=== PATIENT | female | born 1955 | race Native Hawaiian/Other Pacific Islander ===

== ENCOUNTER 2016-05-19 13:51 | Outpatient (CLI) | payer OTHER | END 2016-05-19 14:51 | disposition home or self-care (01) | LOC: MRI 13:51 | DX: M54.5 Low back pain (principal); M54.16 Radiculopathy, lumbar region ==

== ENCOUNTER 2016-07-28 10:21 | Outpatient (CLI) | payer OTHER | END 2016-07-28 19:12 | disposition home or self-care (01) | LOC: MAMMO 10:21 | DX: Z12.31 Encounter for screening mammogram for malignant neoplasm of breast (principal) | CPT/HCPCS: G0202-TC ==

== ENCOUNTER 2016-11-01 09:46 | Emergency (ER) | payer OTHER ==
[~2016-11-01] VITALS: Ht 160 cm; Wt 110.7 kg
[2016-11-01 09:58] VITALS: TEMP 98.4
[2016-11-01 11:21] LABS: PLATELET COUNT 168 K/uL (152-353)
[2016-11-01 11:28] LABS: POTASSIUM 4.4 mmol/L (3.6-5.2); SODIUM 139 mmol/L (136-145)
[2016-11-01 12:15] VITALS: BP 153/90
== END 2016-11-01 12:35 | disposition home or self-care (01) ==
LOC: ED 09:46
PROVIDERS: Specialist
DX: H81.10 Benign paroxysmal vertigo, unspecified ear (principal)
CPT/HCPCS: 36415; 80053; 80307; 81000; 83735; 84100; 85027; 96365; 99284; G0479; J3411; J3475; J3490

== ENCOUNTER 2017-04-18 10:49 | Outpatient (CLI) | payer OTHER | END 2017-04-18 11:50 | disposition home or self-care (01) | LOC: MAMMO 10:49 | DX: N64.4 Mastodynia (principal) ==

== ENCOUNTER 2017-09-08 10:55 | Outpatient (CLI) | payer OTHER | END 2017-09-08 19:36 | disposition home or self-care (01) | LOC: RAD 10:55 | DX: S99.812A Other specified injuries of left ankle, initial encounter (principal); M79.601 Pain in right arm ==

== ENCOUNTER 2018-02-11 14:47 | Emergency (ER) | payer OTHER ==
[~2018-02-11] VITALS: Ht 157.5 cm; Wt 109.8 kg
[2018-02-11 18:08] LABS: PLATELET COUNT 220 K/uL (152-353)
[2018-02-11 19:29] LABS: POTASSIUM 4.2 mmol/L (3.6-5.2)
[2018-02-11 22:43] VITALS: BP 165/83; TEMP 98.1
== END 2018-02-11 22:43 | disposition home or self-care (01) ==
LOC: ED 14:47
PROVIDERS: Family Medicine
DX: K29.60 Other gastritis without bleeding (principal)
CPT/HCPCS: 36415; 80053; 81000; 85027; 99283

== ENCOUNTER 2018-07-21 10:57 | Outpatient (CLI) | payer OTHER | END 2018-07-21 22:39 | disposition home or self-care (01) | LOC: MAMMO 10:57 | DX: Z12.31 Encounter for screening mammogram for malignant neoplasm of breast (principal) ==

== ENCOUNTER 2018-07-31 11:30 | Outpatient (CLI) | payer OTHER | END 2018-07-31 22:39 | disposition home or self-care (01) | LOC: RAD 11:30 | DX: M25.531 Pain in right wrist (principal); J44.9 Chronic obstructive pulmonary disease, unspecified ==

== ENCOUNTER 2018-11-20 01:16 | Inpatient (IN) | payer OTHER ==
[2018-11-20] VITALS (8 sets, daily range): BP systolic 130–204; BP diastolic 61–87; TEMP 97.4–98.1; Ht 160 cm; Wt 111.8 kg
[~2018-11-20] VITALS: Ht 160 cm; Wt 111.8 kg
[2018-11-20 02:07] LABS: PLATELET COUNT 169 K/uL (152-353)
[2018-11-20 02:41] LABS: POTASSIUM 4.6 mmol/L (3.6-5.2)
[2018-11-20] MEDS ORDERED: METFORMIN HCL500 M1 PO (08:46)
[2018-11-20] MEDS ORDERED: GLIM4TAB PO (08:47)
[2018-11-20] MEDS ORDERED: ROSU10TA PO (08:47)
[2018-11-20] MEDS ORDERED: LOPRESSOR100 MG PO (08:48)
[2018-11-20] MEDS ORDERED: AMLODIPINE BESYLATE PO (08:49)
[2018-11-20] MEDS ORDERED: FENOFIBRIC ACI135 MG PO (08:49)
[2018-11-20] MEDS ORDERED: OLMESARTAN MEDO1 TA1 PO (08:50)
[2018-11-21] VITALS (7 sets, daily range): BP systolic 134–156; BP diastolic 66–77; TEMP 97.6–98.4
[2018-11-22 04:00] VITALS: BP 135/70; TEMP 98.3
[2018-11-22 08:00] VITALS: BP 153/72; TEMP 98
[2018-11-22 12:00] VITALS: BP 182/74; TEMP 97.8
[2018-11-22 16:00] VITALS: BP 180/75; TEMP 97.6
[2018-11-22 17:00] VITALS: BP 166/77
[2018-11-22 20:00] VITALS: BP 169/85; TEMP 97.9
[2018-11-23 00:48] VITALS: BP 183/75; TEMP 98.3
[2018-11-23 04:00] VITALS: BP 148/65; TEMP 98.1
[2018-11-23 08:00] VITALS: BP 180/69; TEMP 97.6
[2018-11-23 12:00] VITALS: BP 157/70; TEMP 97.7
[2018-11-23 16:00] VITALS: BP 169/70; TEMP 97.7
[2018-11-23 19:41] VITALS: BP 127/76; TEMP 97.9
[2018-11-24 00:04] VITALS: BP 138/60; TEMP 98.2
[2018-11-24 04:24] VITALS: BP 143/67; TEMP 97.9
[2018-11-24 05:17] LABS: PLATELET COUNT 144 K/uL (152-353)
[2018-11-24 05:25] LABS: POTASSIUM 3.4 mmol/L (3.6-5.2)
[2018-11-24 08:00] VITALS: BP 145/61; TEMP 98.1
== END 2018-11-24 10:45 | disposition home or self-care (01) | DRG 440 ==
LOC: ED 01:16 → MED/SURG 03:30
PROVIDERS: Hospitalist; ADMIT Internal Medicine
DX: K85.80 Other acute pancreatitis without necrosis or infection (principal); J44.9 Chronic obstructive pulmonary disease, unspecified; I25.10 Atherosclerotic heart disease of native coronary artery without angina pectoris; E78.49 Other hyperlipidemia; G47.33 Obstructive sleep apnea (adult) (pediatric); E66.01 Morbid (severe) obesity due to excess calories; E11.9 Type 2 diabetes mellitus without complications; K21.9 Gastro-esophageal reflux disease without esophagitis; K76.0 Fatty (change of) liver, not elsewhere classified
CPT/HCPCS: 36415; 80048; 80053; 80320; 81000; 82150; 83690; 85027; 96360; 96375; 96376; 99284; J1170; J1644; J2405; J3490

== ENCOUNTER 2018-12-09 20:36 | Emergency (ER) | payer OTHER ==
[~2018-12-09] VITALS: Ht 160 cm; Wt 111.6 kg
[~2018-12-09 20:36] MED LIST: AMLODIPINE BESYLATE PO; FENOFIBRIC ACI135 MG PO; GLIM4TAB PO; LOPRESSOR100 MG PO; METFORMIN HCL500 M1 PO; OLMESARTAN MEDO1 TA1 PO; ROSU10TA PO
[2018-12-09 23:30] VITALS: BP 169/68; TEMP 98.9
== END 2018-12-09 23:35 | disposition home or self-care (01) ==
LOC: ED 20:36
DX: S80.11XA Contusion of right lower leg, initial encounter (principal); W17.2XXA Fall into hole, initial encounter; Y92.89 Other specified places as the place of occurrence of the external cause
CPT/HCPCS: 96372; 99282; 99283; J1885

== ENCOUNTER 2018-12-20 15:59 | Outpatient (CLI) | payer OTHER | END 2018-12-20 23:50 | disposition home or self-care (01) | LOC: US 15:59 | DX: M79.604 Pain in right leg (principal) ==

== ENCOUNTER 2019-02-15 05:20 | Inpatient (IN) | payer OTHER ==
[~2019-02-15] VITALS: Ht 157.5 cm; Wt 111.3 kg
[2019-02-15 05:30] VITALS: BP 173/73; TEMP 97.7
[2019-02-15 06:30] LABS: PLATELET COUNT 170 K/uL (152-353)
[2019-02-15 06:31] LABS: POTASSIUM 4.8 mmol/L (3.6-5.2); SODIUM 134 mmol/L (136-145)
[2019-02-15 07:40] VITALS: BP 151/69
[2019-02-15 09:08] VITALS: BP 126/63
[2019-02-15 12:52] VITALS: BP 170/83; TEMP 97.7; Ht 157.5 cm; Wt 111.3 kg
[2019-02-15 20:00] VITALS: BP 154/67; TEMP 98.4
[2019-02-15 23:59] VITALS: BP 161/82; TEMP 98.6
[2019-02-16 04:00] VITALS: BP 147/69; TEMP 98.2
[2019-02-16 05:12] LABS: PLATELET COUNT 140 K/uL (152-353)
[2019-02-16 05:30] LABS: POTASSIUM 4.4 mmol/L (3.6-5.2)
[2019-02-16 08:00] VITALS: BP 164/72; TEMP 98.8
[2019-02-17 16:13] VITALS: BP 127/59; TEMP 99.8
[2019-02-17 19:57] VITALS: BP 123/79; TEMP 99.5
[2019-02-17 23:57] VITALS: BP 130/58; TEMP 98.9
[2019-02-18 03:54] VITALS: BP 124/68; TEMP 99.2
[2019-02-18 05:12] LABS: PLATELET COUNT 116 K/uL (152-353)
[2019-02-18 05:39] LABS: POTASSIUM 3.4 mmol/L (3.6-5.2)
[2019-02-18 23:59] VITALS: BP 157/65; TEMP 98.6
[2019-02-19 03:54] VITALS: BP 157/70; TEMP 99.1
[2019-02-19 12:36] VITALS: BP 154/72; TEMP 99.4
[2019-02-19 16:10] VITALS: BP 174/75; TEMP 98.3
[2019-02-19 20:00] VITALS: BP 167/77; TEMP 99.4
[2019-02-20] VITALS: BP 146/61; TEMP 98.6
[2019-02-20 04:00] VITALS: BP 146/66; TEMP 98.6
[2019-02-20 08:19] VITALS: BP 162/74; TEMP 98.7
[2019-02-20 19:39] VITALS: BP 177/68; TEMP 98.3
[2019-02-21 00:26] VITALS: BP 168/72; TEMP 99.7
[2019-02-21 04:04] VITALS: BP 152/58; TEMP 98.1
[2019-02-21 08:00] VITALS: BP 147/65; TEMP 98.6
[2019-02-21 12:00] VITALS: BP 153/71; TEMP 98.4
[2019-02-21 15:52] VITALS: BP 171/75; TEMP 98.2
[2019-02-21 19:59] VITALS: BP 169/77; TEMP 99
[2019-02-22] VITALS (7 sets, daily range): BP systolic 123–178; BP diastolic 55–77; TEMP 98.2–99.8
[2019-02-23 04:00] VITALS: BP 174/70; TEMP 98.1
[2019-02-23 08:16] VITALS: BP 180/79; TEMP 98.3
== END 2019-02-23 15:35 | disposition home or self-care (01) | DRG 439 ==
LOC: ED 05:20 → MED/SURG 09:30
PROVIDERS: Emergency Medicine; Internal Medicine; ADMIT Emergency Medicine Emergency Medical Services
DX: K85.80 Other acute pancreatitis without necrosis or infection (principal); Z68.41 Body mass index [BMI] 40.0-44.9, adult; E11.9 Type 2 diabetes mellitus without complications; E78.49 Other hyperlipidemia; I10 Essential (primary) hypertension; K21.9 Gastro-esophageal reflux disease without esophagitis; I25.10 Atherosclerotic heart disease of native coronary artery without angina pectoris; G47.33 Obstructive sleep apnea (adult) (pediatric); E66.01 Morbid (severe) obesity due to excess calories
CPT/HCPCS: 36415; 80053; 82150; 82550; 83690; 84484; 85027; 90686; 93005; 96361; 96365; 96372; 96375; 99284; A9537; J1815; J1940; J2175; J2405; J3490

== ENCOUNTER 2019-05-24 07:39 | Day surgery (SDC) | payer OTHER ==
[2019-05-24 08:27] LABS: PLATELET COUNT 167 K/uL (152-353)
[2019-05-24 08:41] LABS: POTASSIUM 3.6 mmol/L (3.6-5.2)
== END 2019-05-24 10:46 | disposition home or self-care (01) ==
LOC: OR 07:39
PROVIDERS: Internal Medicine
PROC: 0DJD8ZZ Inspection of Lower Intestinal Tract, Via Natural or Artificial Opening Endoscopic (ICD-10-PCS; principal; 2019-05-24)
DX: K64.8 Other hemorrhoids (principal); J44.9 Chronic obstructive pulmonary disease, unspecified; Z72.0 Tobacco use; Z12.11 Encounter for screening for malignant neoplasm of colon
CPT/HCPCS: 80053; 85027; 94640; 94664; J2001; J2250; J2405; J2704; J2765

== ENCOUNTER 2019-08-08 20:04 | Inpatient (IN) | payer OTHER ==
[~2019-08-08] VITALS: Ht 160 cm; Wt 92.8 kg
[2019-08-08 20:20] VITALS: BP 200/112; TEMP 97.7
[2019-08-08 21:05] LABS: PLATELET COUNT 183 K/uL (152-353)
[2019-08-08 21:12] LABS: POTASSIUM 4.1 mmol/L (3.6-5.2); SODIUM 133 mmol/L (136-145)
[2019-08-09 00:54] VITALS: BP 151/78; TEMP 97.6; Ht 160 cm; Wt 92.8 kg
[2019-08-09] MEDS ORDERED: OZEMPIC2 MG/1.5 M SC (01:42)
[2019-08-09] MEDS ORDERED: ALLERGY NA50 MCG/ACT INH (01:44)
[2019-08-09] MEDS ORDERED: ALLERGY RELF10 M1 PO (01:45)
[2019-08-09] MEDS ORDERED: [UNRECOGNIZED DRUG - OTHER] PO (01:46)
[2019-08-09] MEDS ORDERED: PANTOPRAZOLE 40MG TA PO (01:48)
[2019-08-09 04:00] VITALS: BP 132/64; TEMP 97.9
[2019-08-09 08:00] VITALS: BP 136/70; TEMP 97.9
[2019-08-09 12:00] VITALS: BP 146/77; TEMP 98.3
[2019-08-09 16:00] VITALS: BP 129/74; TEMP 98.4
[2019-08-09 20:00] VITALS: BP 138/69; TEMP 98.6
[2019-08-10 00:18] VITALS: BP 144/67; TEMP 98.2
[2019-08-10 04:00] VITALS: BP 138/76; TEMP 97.8
[2019-08-10 04:59] LABS: PLATELET COUNT 149 K/uL (152-353)
[2019-08-10 07:52] VITALS: BP 138/68; TEMP 97.6
[2019-08-10 12:00] VITALS: BP 149/78; TEMP 97.6
[2019-08-10 16:00] VITALS: BP 161/84; TEMP 97.7
[2019-08-10 20:00] VITALS: BP 176/86; TEMP 98
[2019-08-11] VITALS: BP 163/81; TEMP 98.4
[2019-08-11 04:10] VITALS: BP 141/66; TEMP 97.8
== END 2019-08-11 14:00 | disposition home or self-care (01) | DRG 440 ==
LOC: ED 20:04 → MED/SURG 23:25
PROVIDERS: Internal Medicine; ADMIT Emergency Medicine
DX: K85.80 Other acute pancreatitis without necrosis or infection (principal); I10 Essential (primary) hypertension; K21.9 Gastro-esophageal reflux disease without esophagitis; E11.9 Type 2 diabetes mellitus without complications; I25.10 Atherosclerotic heart disease of native coronary artery without angina pectoris; J44.9 Chronic obstructive pulmonary disease, unspecified; G47.33 Obstructive sleep apnea (adult) (pediatric); E66.01 Morbid (severe) obesity due to excess calories; E78.49 Other hyperlipidemia
CPT/HCPCS: 36415; 80053; 80061; 82150; 82550; 82553; 83690; 84484; 85027; 93005; 96365; 96366; 96372; 96374; 99283; 99284; J2175; J2270; Q9963

== ENCOUNTER 2020-02-19 00:35 | Inpatient (IN) | payer OTHER ==
[2020-02-19] VITALS (7 sets, daily range): BP systolic 124–196; BP diastolic 60–79; TEMP 97.7–98.3; Ht 152.4 cm; Wt 100.4 kg
[~2020-02-19] VITALS: Ht 152.4 cm; Wt 100.4 kg
[~2020-02-19 00:35] MED LIST changes: +ALLERGY NA50 MCG/ACT INH; +ALLERGY RELF10 M1 PO; +OZEMPIC2 MG/1.5 M SC; +PANTOPRAZOLE 40MG TA PO; +[UNRECOGNIZED DRUG - OTHER] PO
[2020-02-19 03:02] LABS: PLATELET COUNT 189 K/uL (152-353)
[2020-02-19 03:13] LABS: POTASSIUM 4.8 mmol/L (3.6-5.2)
[2020-02-19 03:43] LABS: PARTIAL THROMBOPLASTIN TIME 23.3 SECONDS (24.5-33.6)
[2020-02-20 04:00] VITALS: BP 151/56; TEMP 98.4
[2020-02-20 08:00] VITALS: BP 181/80; TEMP 99.2
[2020-02-20 08:09] LABS: PLATELET COUNT 146 K/uL (152-353)
[2020-02-20 08:34] LABS: POTASSIUM 4.6 mmol/L (3.6-5.2)
[2020-02-20 20:15] VITALS: BP 173/81; TEMP 98.6
[2020-02-21] VITALS: BP 138/69; TEMP 98.6
[2020-02-21 04:00] VITALS: BP 167/82; TEMP 97.8
[2020-02-21 05:25] LABS: PLATELET COUNT 141 K/uL (152-353)
[2020-02-21 05:49] LABS: POTASSIUM 4.2 mmol/L (3.6-5.2)
[2020-02-21 12:00] VITALS: BP 135/60; TEMP 98.6
[2020-02-21 16:00] VITALS: BP 153/73; TEMP 99.5
[2020-02-21 21:07] VITALS: BP 174/82; TEMP 98.9
[2020-02-22 00:36] VITALS: BP 151/72; TEMP 98.3
[2020-02-22 04:00] VITALS: BP 154/75; TEMP 99.2
[2020-02-22 04:59] LABS: PLATELET COUNT 141 K/uL (152-353)
[2020-02-22 05:22] LABS: POTASSIUM 3.5 mmol/L (3.6-5.2)
[2020-02-22 08:35] VITALS: BP 168/75; TEMP 98.4
[2020-02-22 12:37] VITALS: BP 136/60; TEMP 98.7
== END 2020-02-22 15:20 | disposition home or self-care (01) | DRG 439 ==
LOC: ED 00:35 → MED/SURG 03:37
PROVIDERS: Hospitalist; ADMIT Internal Medicine Endocrinology, Diabetes & Metabolism
DX: K85.80 Other acute pancreatitis without necrosis or infection (principal); E87.1 Hypo-osmolality and hyponatremia; K86.1 Other chronic pancreatitis; I10 Essential (primary) hypertension; E13.9 Other specified diabetes mellitus without complications; E78.49 Other hyperlipidemia; G47.33 Obstructive sleep apnea (adult) (pediatric); E66.01 Morbid (severe) obesity due to excess calories; J44.9 Chronic obstructive pulmonary disease, unspecified; Z72.0 Tobacco use
CPT/HCPCS: 36415; 80053; 80320; 81000; 82150; 83690; 85027; 85610; 85730; 87088; 94640; 94664; 94760; 96365; 96374; 96375; 99284; J0360; J1170; J1815; J1940; J2270; J2405; J3490

== ENCOUNTER → 2020-03-22 | Emergency (ER) | payer OTHER ==
[~2020-03-22] VITALS: Ht 160 cm; Wt 98.0 kg
[2020-03-22 09:33] VITALS: TEMP 99.1
[2020-03-22 10:21] LABS: PLATELET COUNT 173 K/uL (152-353)
[2020-03-22 10:29] LABS: POTASSIUM 4.9 mmol/L (3.6-5.2)
[2020-03-22 10:56] VITALS: BP 156/84
== END ==
LOC: ED 09:22
PROVIDERS: Emergency Medicine Emergency Medical Services
DX: E11.65 Type 2 diabetes mellitus with hyperglycemia (principal); Z79.84 Long term (current) use of oral hypoglycemic drugs
CPT/HCPCS: 36415; 80053; 81000; 83690; 85027; 96360; 96372; 96375; 99284; J1815; J2405

== ENCOUNTER 2020-05-28 11:01 | Outpatient (CLI) | payer OTHER | END 2020-05-28 19:39 | disposition home or self-care (01) | LOC: MAMMO 11:01 | PROVIDERS: ATTEND Nurse Practitioner Family | DX: Z13.820 Encounter for screening for osteoporosis (principal); Z12.31 Encounter for screening mammogram for malignant neoplasm of breast; N95.8 Other specified menopausal and perimenopausal disorders ==

== ENCOUNTER 2020-10-12 10:29 | Emergency (ER) | payer OTHER ==
[~2020-10-12] VITALS: Ht 160 cm; Wt 91.2 kg
[2020-10-12 10:33] VITALS: BP 179/78; TEMP 98
== END 2020-10-12 11:25 | disposition home or self-care (01) ==
LOC: ED 10:29
DX: L30.8 Other specified dermatitis (principal)
CPT/HCPCS: 96372; 99283; J2930; J3410

== ENCOUNTER 2020-10-16 14:43 | Emergency (ER) | payer OTHER ==
[~2020-10-16] VITALS: Ht 160 cm; Wt 91.2 kg
[2020-10-16 14:58] VITALS: BP 202/82; TEMP 97.6
== END 2020-10-16 15:35 | disposition home or self-care (01) ==
LOC: ED 14:43
DX: T63.301A Toxic effect of unspecified spider venom, accidental (unintentional), initial encounter (principal); Y92.89 Other specified places as the place of occurrence of the external cause
CPT/HCPCS: 96372; 99283; J1020; J1885

== ENCOUNTER 2020-10-18 12:12 | Emergency (ER) | payer OTHER ==
[~2020-10-18] VITALS: Ht 160 cm; Wt 91.2 kg
[2020-10-18 12:18] VITALS: BP 187/80; TEMP 98.3
[2020-10-18 13:00] LABS: PLATELET COUNT 201 K/uL (152-353)
== END 2020-10-18 13:41 | disposition home or self-care (01) ==
LOC: ED 12:12
PROVIDERS: Emergency Medicine
DX: L02.414 Cutaneous abscess of left upper limb (principal); R23.8 Other skin changes; E11.65 Type 2 diabetes mellitus with hyperglycemia; Z79.84 Long term (current) use of oral hypoglycemic drugs
CPT/HCPCS: 80048; 85027; 87070; 87077; 87185; 87186; 87205; 96372; 99283; J3490

== ENCOUNTER 2020-10-21 15:36 | Inpatient (IN) | payer OTHER ==
[~2020-10-21] VITALS: Ht 160 cm; Wt 93.2 kg
--- NOTE | 2020-10-21 16:15 | NUR ---
ABSCESS NOTED TO RT CHEEK WITH REDDENED AREA, INTACT WITH NO DRAINAGE NOTED, OPEN ABSCESS NOTED TO RT FA MEASURING 2CM X 2CM DRY WITH NO DRAINAGE NOTED AT THIS TIME, TWO SMALL ABCESSES NOTED UNDER RT BREAST CDI
--- NOTE | 2020-10-21 16:15 | NUR ---
PT ADMITTED TO 1117 VIA WHEELCHAIR BY DIRECT ADMIT, NAD NOTED, SON ACCOMPANIED PT TO , PT AMBULATED FROM WHEELCHAIR TO BED WITHOUT ASSISTANCE, NONLABORED BREATHING, WEIGHT AND VITALS OBTAINED, ORIENTED PT TO AND CALL LIGHT, PT VERBLIZED UNDERSTANDING
[2020-10-21 17:16] VITALS: BP 147/74; TEMP 98.7; Ht 160 cm; Wt 93.2 kg
[2020-10-21 17:20] LABS: PLATELET COUNT 208 K/uL (152-353)
--- NOTE | 2020-10-21 17:30 | NUR ---
DR. SHEPARD IN PT RM TO PERFORM I&D TO ABCESS OF RT CHEEK, PT TOLERATED PROCEDURE WELL, SMALL AMOUNT OF PUS DRAINAGE NOTED AT THIS TIME, DR. SHEPARD STATES TO KEEP ABCESSES TO RT CHEEK AND RT FA OPEN TO AIR AND PERFROM WARM COMPRESSES, HE ALSO STATES TO EXPRESS PUS FROM ABCESS TO RT CHEEK AND RT FA IF ABLE, NO FURTHER ORDERS GIVEN AT THIS TIME
[2020-10-21 17:32] LABS: POTASSIUM 4.4 mmol/L (3.6-5.2)
[2020-10-21] MEDS ORDERED: METF100038 PO (19:39)
[2020-10-21] MEDS ORDERED: SIMV20TA2 PO (19:40)
[2020-10-21] MEDS ORDERED: AMLODIPINE BESYLATE PO (19:40)
[2020-10-21] MEDS ORDERED: GLIM2TAB PO (19:41)
[2020-10-21] MEDS ORDERED: GEMFIBROZIL PO (19:44)
[2020-10-21] MEDS ORDERED: ASPIRIN 81 LOW81 MG PO (19:44)
[2020-10-21] MEDS ORDERED: OLMESARTAN MEDO40 MG PO (19:45)
[2020-10-21] MEDS ORDERED: HYDROCHLOROT12.5 M1 PO (19:45)
[2020-10-21 20:00] VITALS: BP 150/67; TEMP 98
--- NOTE | 2020-10-21 20:40 | NUR ---
PT AWAKE,ALERT, AND ORIENTED SITTING UP ON SIDE OF BED WITH NO S/S OF PAIN OR DISTRESS NOTED. DENIES ANY PROBLEMS AT THIS TIME. RESP RATE NONLABORED, IV SITE INTACT TO L WRIST WITH NO PROBLEMS NOTED TO SITE AND NS INFUSING AT 75ML/HR, ON ROOM AIR. ON CONTACT ISOLATION. ENCOURAGED TO CALL NEEDED, RAILS UP, BED IN LOW POSITION, CALL LIGHT IN REACH, WILL MONITOR CLOSELY.
--- NOTE | 2020-10-21 23:40 | NUR ---
RESTING WITH EYES CLOSED IN BED IN POSITION OF COMFORT, PT'S HOME CPAP IN USE, IV INTACT, RESP RATE NONLABORED, WILL MONITOR, RAILS UP, BED IN LOW POSITION.
[2020-10-22] VITALS (7 sets, daily range): BP systolic 147–168; BP diastolic 64–82; TEMP 97.5–98.4
--- NOTE | 2020-10-22 01:50 | NUR ---
RESTING IN POSITION OF COMFORT IN BED WITH EYES CLOSED, NO S/S OF PAIN OR DISTRESS NOTED, RESP RATE NONLABORED, HOME CPAP IN USE, IV INTACT WITH FLUID ONGOING, WILL MONITOR, RAILS UP, BED IN LOW POSITION, CALL LIGHT IN REACH.
--- NOTE | 2020-10-22 04:25 | NUR ---
PT RESTING IN BED WITH EYES CLOSED LAYING IN POSITION OF COMFORT ON SIDE, NO S/S OF PAIN OR DISTRESS NOTED, RESP RATE NONLABORED, PT'S HOME CPAP IN USE, IV INTACT TO L WRIST WITH NS INFUSING AT 75ML/HR, WILL MONITOR, RAILS UP, BED IN LOW POSITION, CALL LIGHT IN REACH.
--- NOTE | 2020-10-22 09:00 | NUR ---
DR. OLIVO ORDERED CPAP MASK TO BE CLEANED WITH CHLORIHEXIDINE IN THE MORNINGS. PATIENT MASK HAS BEEN CLEANED.
--- NOTE | 2020-10-22 09:02 | NUR ---
REVIEWED PT CONDITION AND CHART WITH MD NEW ORDERS GIVEN
[2020-10-22 09:35] LABS: PLATELET COUNT 200 K/uL (152-353)
[2020-10-22 10:11] LABS: POTASSIUM 4.1 mmol/L (3.6-5.2)
--- NOTE | 2020-10-22 16:50 | NUR ---
DR. OLIVO NOTIFIED OF PCN ALLERGY. NAFCILLIN STOPPED AND VANC RESTARTED PER VO RECEIVED FROM DR. OLIVO. RVB AND SENT TO PHARMACY
--- NOTE | 2020-10-22 20:00 | NUR ---
PT WITH NOTED FACIAL AND ADOMINAL WOUNDS. PT USING HER OWN C PAP. NO COMPLAINTS AT THIS TIME.
--- NOTE | 2020-10-22 21:00 | NUR ---
PM MEDICATIONS WERE GIVEN. REVIEWED MEDICATION WITH PATIENT. IDENTIFIED THE DOSAGE AND NAME. PT VOICED UNDERSTANDING OF MEDICATIONS/DOSE.
--- NOTE | 2020-10-23 02:33 | NUR ---
ROUNDS MADE. PT IS RESTING WITH EYES CLOSED. WEARING CPAP.
[2020-10-23 04:00] VITALS: BP 156/73; TEMP 97.7
--- NOTE | 2020-10-23 05:32 | NUR ---
PT HAS BEEN RESTING WITH EYES CLOSED. WEARING C PAP.
--- NOTE | 2020-10-23 06:33 | NUR ---
NO CHANGES NOTED TO PATIENT. STILL AWAITING BED ASSIGNMENT FROM [place], [place] [facility]. PT AND HIS AWARE.
--- NOTE | 2020-10-23 06:36 | NUR ---
PT HAS RESTED WELL THROUGH THIS SHIFT. NO COMPLAINTS. VANCOMYCIN TROUGH IS 11 1 GRAM TO RUN OVER 2 HOURS THEN PEAK WILL BEEN DRAWN PER LAB.
[2020-10-23 08:00] VITALS: BP 151/71; TEMP 97.7
[2020-10-23] MEDS ORDERED: DOXYCYCLINE100 MG PO (10:35)
--- NOTE | 2020-10-23 11:40 | NUR ---
DISCHARGE INSTRUCTIONS PROVIDED TO PATIENT. PATIENT VERBALIZED UNDERSTANDING OF INSTRUCTIONS. 22G TO RIGHT WRIST D/C WITH TIP INTACT BY STUDENT NURSE. PATIENT TOLERATED WELL. PATIENT D/C TO HOME VIA PERSONAL VEHICLE WITH SON DRIVING. PATIENT WHEELED TO VEHICLE VIA WHEELCHAIR.
--- NOTE | 2020-10-23 15:54 | NUR ---
PHARMACY CALLED FOR PRESCRIPTION. E-SCRIPT SENT BUT PHARMACY DID NOT RECEIVE. VERBAL ORDER TO CALL IN PRESCRIPTION FOR DOXYCYCLINE 100 MG BID FOR 5 DAYS.
== END 2020-10-23 11:55 | disposition home or self-care (01) | DRG 603 ==
LOC: MED/SURG 15:36
PROVIDERS: Internal Medicine; ADMIT Internal Medicine Endocrinology, Diabetes & Metabolism; ATTEND Internal Medicine Endocrinology, Diabetes & Metabolism
DX: L03.211 Cellulitis of face (principal); L03.116 Cellulitis of left lower limb; Z16.24 Resistance to multiple antibiotics; B95.62 Methicillin resistant Staphylococcus aureus infection as the cause of diseases classified elsewhere; I10 Essential (primary) hypertension; J44.9 Chronic obstructive pulmonary disease, unspecified; K21.9 Gastro-esophageal reflux disease without esophagitis; I25.10 Atherosclerotic heart disease of native coronary artery without angina pectoris; E66.01 Morbid (severe) obesity due to excess calories; M51.37 Other intervertebral disc degeneration, lumbosacral region; E78.5 Hyperlipidemia, unspecified; Z71.6 Tobacco abuse counseling; F17.210 Nicotine dependence, cigarettes, uncomplicated; G89.4 Chronic pain syndrome; E11.9 Type 2 diabetes mellitus without complications
CPT/HCPCS: 36415; 80053; 80202; 85027; 87070; 87077; 87185; 87186; 87205; 87635; J3370; U0003

== ENCOUNTER 2020-10-30 12:40 | Inpatient (IN) | payer OTHER ==
[~2020-10-30 12:40] MED LIST changes: +ASPIRIN 81 LOW81 MG PO; +DOXYCYCLINE100 MG PO; +GEMFIBROZIL PO; +GLIM2TAB PO; +HYDROCHLOROT12.5 M1 PO; +METF100038 PO; +OLMESARTAN MEDO40 MG PO; +SIMV20TA2 PO
[2020-11-13 15:10] LABS: POTASSIUM 4.7 mmol/L (3.6-5.2); SODIUM 137 mmol/L (136-145)
[2020-11-13 15:14] LABS: PLATELET COUNT 152 K/uL (152-353)
[2020-11-14 09:48] LABS: POTASSIUM 4.9 mmol/L (3.6-5.2)
[2020-11-14 09:50] LABS: PLATELET COUNT 130 K/uL (152-353)
[2020-11-14 12:14] LABS: POTASSIUM 3.7 mmol/L (3.6-5.2)
[2020-11-14 12:17] LABS: PLATELET COUNT 130 K/uL (152-353)
[2020-11-15 09:20] LABS: PLATELET COUNT 132 K/uL (152-353)
[2020-11-15 09:21] LABS: POTASSIUM 3.8 mmol/L (3.6-5.2)
[2020-11-16 06:08] LABS: POTASSIUM 3.5 mmol/L (3.6-5.2)
[2020-11-16 08:22] LABS: SODIUM 140 mmol/L (136-145)
[2020-11-16 08:23] LABS: POTASSIUM 3.5 mmol/L (3.6-5.2)
[2020-11-16 09:53] LABS: POTASSIUM 3.8 mmol/L (3.6-5.2)
[2020-11-16 09:54] LABS: PLATELET COUNT 145 K/uL (152-353)
== END 2020-11-05 17:00 | disposition home or self-care (01) | DRG 440 ==
LOC: ED 12:40 → MED/SURG 14:35
PROVIDERS: Emergency Medicine; ADMIT Internal Medicine Endocrinology, Diabetes & Metabolism; ATTEND Internal Medicine Endocrinology, Diabetes & Metabolism
DX: K85.80 Other acute pancreatitis without necrosis or infection (principal); E83.42 Hypomagnesemia; E13.9 Other specified diabetes mellitus without complications; I10 Essential (primary) hypertension; E78.49 Other hyperlipidemia; K21.9 Gastro-esophageal reflux disease without esophagitis; K86.1 Other chronic pancreatitis; J43.9 Emphysema, unspecified
CPT/HCPCS: 36415; 80053; 80307; 82150; 82550; 83690; 83735; 84484; 85027; 85610; 85730; 87635; 93005; 96360; 96375; 99284; J0360; J2270; J2405; J3475; U0003

== ENCOUNTER 2020-12-12 08:57 | Outpatient (CLI) | payer OTHER | END 2020-12-12 22:35 | disposition home or self-care (01) | LOC: LAB 08:57 | PROVIDERS: ATTEND Nurse Practitioner Family | DX: R05 Cough (principal); Z20.822 Contact with and (suspected) exposure to COVID-19 | CPT/HCPCS: 87635; G2023; U0003 ==

== ENCOUNTER → 2020-12-25 | Outpatient (CLI) | payer OTHER ==
[2020-12-25 14:05] LABS: POTASSIUM 4.4 mmol/L (3.6-5.2)
[2020-12-25 14:12] LABS: PLATELET COUNT 152 K/uL (152-353)
== END ==
LOC: LABW 13:20 → OR 14:30 → EDSTATUS 12-31 13:00 → OR 12-31 13:00
PROVIDERS: ATTEND Internal Medicine Gastroenterology
DX: K21.9 Gastro-esophageal reflux disease without esophagitis (principal); Z01.812 Encounter for preprocedural laboratory examination
CPT/HCPCS: 80053; 85027; 87635; U0003

== ENCOUNTER → 2021-01-28 | Outpatient (CLI) | payer OTHER | LOC: LAB 10:44 | PROVIDERS: ATTEND Nurse Practitioner Family | DX: R09.81 Nasal congestion (principal); Z20.822 Contact with and (suspected) exposure to COVID-19; R05 Cough; R52 Pain, unspecified | CPT/HCPCS: 87635; G2023; U0003 ==

== ENCOUNTER 2021-03-05 13:42 | Outpatient (CLI) | payer OTHER | END 2021-03-05 18:59 | disposition home or self-care (01) | LOC: MAMMO 13:42 | PROVIDERS: ATTEND Nurse Practitioner Family | DX: N63.10 Unspecified lump in the right breast, unspecified quadrant (principal); N64.59 Other signs and symptoms in breast | CPT/HCPCS: G0279 ==

== ENCOUNTER 2021-07-13 13:58 | Outpatient (CLI) | payer OTHER | END 2021-07-13 18:56 | disposition home or self-care (01) | LOC: RAD 13:58 | PROVIDERS: ATTEND Nurse Practitioner Family | DX: M79.671 Pain in right foot (principal) ==

== ENCOUNTER 2021-07-16 11:05 | Outpatient (CLI) | payer OTHER | END 2021-07-16 19:20 | disposition home or self-care (01) | LOC: RAD 11:05 | PROVIDERS: ATTEND Nurse Practitioner Family | DX: M79.671 Pain in right foot (principal); W19.XXXA Unspecified fall, initial encounter ==

== ENCOUNTER 2021-08-09 02:42 | Observation (INO) | payer OTHER ==
[~2021-08-09] VITALS: Ht 160 cm; Wt 94.9 kg
[2021-08-09] VITALS (8 sets, daily range): BP systolic 123–191; BP diastolic 53–89; TEMP 97.7–98.4; Ht 160 cm; Wt 94.9 kg
[~2021-08-09 02:42] MED LIST changes: -GLIM2TAB PO; +GLIMEPIRIDE PO; +HYDR25TA60 PO; -HYDROCHLOROT12.5 M1 PO; -SIMV20TA2 PO; +SIMV40TA57 PO
[2021-08-09 03:13] LABS: PLATELET COUNT 159 K/uL (152-353)
[2021-08-09 03:21] LABS: POTASSIUM 4.6 mmol/L (3.6-5.2)
[2021-08-09 03:32] LABS: PARTIAL THROMBOPLASTIN TIME 22.1 SECONDS (24.5-33.6)
[2021-08-09 08:46] LABS: POTASSIUM 4.9 mmol/L (3.6-5.2)
[2021-08-09] MEDS ORDERED: CYAN10009 IM (13:10)
[2021-08-09] MEDS ORDERED: [UNRECOGNIZED DRUG - CODE] PO (13:15)
[2021-08-10 00:04] VITALS: BP 143/72; TEMP 98.2
[2021-08-10 04:13] VITALS: BP 139/65; TEMP 99
[2021-08-10 05:26] LABS: PLATELET COUNT 125 K/uL (152-353)
[2021-08-10 05:45] LABS: POTASSIUM 4.3 mmol/L (3.6-5.2)
[2021-08-10 08:00] VITALS: BP 147/66; TEMP 97.4
[2021-08-10 12:00] VITALS: BP 156/60; TEMP 97.7
[2021-08-10 16:00] VITALS: BP 137/58; TEMP 99.5
[2021-08-10 20:00] VITALS: BP 143/52; TEMP 99.6
[2021-08-11] VITALS: BP 168/66; TEMP 99
[2021-08-11 04:00] VITALS: BP 149/61; TEMP 99.6
[2021-08-11 08:00] VITALS: BP 108/78; TEMP 99.1
[2021-08-11 12:00] VITALS: BP 154/74; TEMP 99.4
[2021-08-11 16:00] VITALS: BP 146/65; TEMP 98.3
[2021-08-11 20:00] VITALS: BP 153/67; TEMP 99
[2021-08-12] VITALS: BP 150/78; TEMP 98.4
[2021-08-12 04:00] VITALS: BP 147/70; TEMP 97.7
[2021-08-12 06:03] LABS: POTASSIUM 3.8 mmol/L (3.6-5.2)
[2021-08-12 08:00] VITALS: BP 162/77; TEMP 97.4
[2021-08-12 12:00] VITALS: BP 159/71; TEMP 98.1
== END 2021-08-12 15:38 | disposition home or self-care (01) ==
LOC: ED 02:42 → MED/SURG 04:52
PROVIDERS: Family Medicine; ADMIT Internal Medicine; ATTEND Internal Medicine
DX: K85.80 Other acute pancreatitis without necrosis or infection (principal); K86.1 Other chronic pancreatitis; G47.33 Obstructive sleep apnea (adult) (pediatric); E11.65 Type 2 diabetes mellitus with hyperglycemia; Z72.0 Tobacco use; E78.49 Other hyperlipidemia; J44.9 Chronic obstructive pulmonary disease, unspecified; K21.9 Gastro-esophageal reflux disease without esophagitis; E66.01 Morbid (severe) obesity due to excess calories; I25.10 Atherosclerotic heart disease of native coronary artery without angina pectoris; I11.9 Hypertensive heart disease without heart failure
CPT/HCPCS: 36415; 80048; 80053; 80061; 81000; 82150; 82550; 82948; 83036; 83690; 84484; 85027; 85610; 85730; 87635; 93005; 94760; 96360; 96361; 96365; 96372; 96374; 96375; 99220; 99284; G0378; J1170; J1650; J1815; J2175; J2270; J2405; J3490; U0003

== ENCOUNTER 2022-01-19 08:20 | Inpatient (IN) | payer OTHER ==
[~2022-01-19] VITALS: Ht 157.5 cm; Wt 91.3 kg
[2022-01-19 08:20] VITALS: BP 187/82; TEMP 98.4
[~2022-01-19 08:20] MED LIST changes: +AMLODIPINE 10 MG PO; +CYAN10009 IM; +GLIMEPIRIDE 1 MG PO; -GLIMEPIRIDE PO; +[UNRECOGNIZED DRUG - CODE] PO
[2022-01-19 09:23] LABS: PLATELET COUNT 165 K/uL (152-353)
[2022-01-19 09:27] LABS: POTASSIUM 4.5 mmol/L (3.6-5.2)
[2022-01-19 09:30] VITALS: BP 166/78
[2022-01-19 10:24] VITALS: BP 171/82
[2022-01-19 10:55] VITALS: BP 138/61
[2022-01-19 12:00] VITALS: BP 159/64; TEMP 97.8; Ht 157.5 cm; Wt 91.3 kg
[2022-01-19] MEDS ORDERED: FLUOCIN ACET TOP (12:34)
[2022-01-19] MEDS ORDERED: TRIA0.1C5 TOP (12:35)
[2022-01-19] MEDS ORDERED: TRICOR145 M1 PO (12:36)
[2022-01-19] MEDS ORDERED: COLCHICINE0.6 M1 PO (12:37)
[2022-01-19] MEDS ORDERED: CETI10TA PO (12:37)
[2022-01-19] MEDS ORDERED: CLARITIN10 M1 PO (12:37)
[2022-01-19] MEDS ORDERED: LORA10TA3 PO (12:38)
[2022-01-19] MEDS ORDERED: BUSPIRONE5 MG PO (12:40)
[2022-01-19 20:00] VITALS: BP 113/55; TEMP 97.7
[2022-01-20] VITALS: BP 143/59; TEMP 98.4
[2022-01-20 04:00] VITALS: BP 148/49; TEMP 98.1
[2022-01-20 07:35] LABS: PLATELET COUNT 156 K/uL (152-353)
[2022-01-20 07:46] LABS: POTASSIUM 3.8 mmol/L (3.6-5.2)
[2022-01-20 08:00] VITALS: BP 163/60; TEMP 99
[2022-01-20 12:00] VITALS: BP 160/4; TEMP 98.8
[2022-01-20 16:00] VITALS: BP 149/61; TEMP 99
[2022-01-20 20:00] VITALS: BP 166/82; TEMP 100.1
[2022-01-21] VITALS: BP 6141/69; TEMP 98.5
[2022-01-21 04:00] VITALS: BP 148/62; TEMP 99
[2022-01-21 12:00] VITALS: BP 124/61; TEMP 97.9
[2022-01-21 16:00] VITALS: BP 136/67; TEMP 98.2
[2022-01-21 20:00] VITALS: BP 139/68; TEMP 99.3
[2022-01-22] VITALS: BP 129/51; TEMP 98.3
[2022-01-22 04:00] VITALS: BP 162/70; TEMP 98.8
[2022-01-22 08:00] VITALS: BP 128/59; TEMP 99
[2022-01-22 12:00] VITALS: BP 137/67; TEMP 98.2
== END 2022-01-22 13:00 | disposition home or self-care (01) | DRG 440 ==
LOC: ED 08:20 → MED/SURG 10:30
PROVIDERS: Emergency Medicine Emergency Medical Services; ADMIT Internal Medicine; ATTEND Internal Medicine
DX: K85.80 Other acute pancreatitis without necrosis or infection (principal); J44.9 Chronic obstructive pulmonary disease, unspecified; E78.49 Other hyperlipidemia; M10.9 Gout, unspecified; I10 Essential (primary) hypertension; K21.9 Gastro-esophageal reflux disease without esophagitis; E66.01 Morbid (severe) obesity due to excess calories; Z68.36 Body mass index [BMI] 36.0-36.9, adult; E11.9 Type 2 diabetes mellitus without complications
CPT/HCPCS: 36415; 80053; 81002; 82150; 82948; 83690; 83735; 84484; 85027; 87635; 93005; 96360; 96361; 96374; 96375; 96376; 99284; J1650; J1885; J2270; J2405; J3490; U0003

== ENCOUNTER 2022-01-26 13:42 | Outpatient (CLI) | payer OTHER ==
[~2022-01-26 13:42] MED LIST changes: +BUSPIRONE5 MG PO; +CETI10TA PO; +CLARITIN10 M1 PO; +COLCHICINE0.6 M1 PO; +FLUOCIN ACET TOP; +LORA10TA3 PO; +TRIA0.1C5 TOP; +TRICOR145 M1 PO
== END 2022-01-26 19:40 | disposition home or self-care (01) ==
LOC: MAMMO 13:42
PROVIDERS: ATTEND Nurse Practitioner Family
DX: R92.8 Other abnormal and inconclusive findings on diagnostic imaging of breast (principal)
CPT/HCPCS: G0279

== ENCOUNTER 2022-03-22 12:05 | Inpatient (IN) | payer OTHER ==
[2022-03-22] VITALS (8 sets, daily range): BP systolic 130–184; BP diastolic 67–86; TEMP 97.6–98.4; Ht 160 cm; Wt 90.3 kg
[~2022-03-22] VITALS: Ht 160 cm; Wt 90.3 kg
[2022-03-22 12:59] LABS: PLATELET COUNT 184 K/uL (152-353)
[2022-03-22 13:05] LABS: POTASSIUM 4.5 mmol/L (3.6-5.2)
[2022-03-22] MEDS ORDERED: METF100038 PO (18:22)
[2022-03-22] MEDS ORDERED: BENICAR40 MG PO (18:23)
[2022-03-22] MEDS ORDERED: LOPRESSOR100 MG PO (18:23)
[2022-03-22] MEDS ORDERED: SIMV40TA57 PO (18:24)
[2022-03-22] MEDS ORDERED: PANTOPRAZOLE 40MG TA PO (18:24)
[2022-03-22] MEDS ORDERED: AMLODIPINE BESYLATE PO (18:25)
[2022-03-22] MEDS ORDERED: TRICOR145 M1 PO (18:25)
[2022-03-22] MEDS ORDERED: CETI10TA PO (18:26)
[2022-03-22] MEDS ORDERED: CLARITIN10 M1 PO (18:27)
[2022-03-22] MEDS ORDERED: PAIN RELIEF EX500 MG PO (18:35)
[2022-03-23 03:58] VITALS: BP 152/69; TEMP 97.8
[2022-03-23 05:11] LABS: PLATELET COUNT 164 K/uL (152-353)
[2022-03-23 05:29] LABS: POTASSIUM 4.4 mmol/L (3.6-5.2)
[2022-03-23 08:13] VITALS: BP 178/78; TEMP 98.6
[2022-03-23 11:32] VITALS: BP 138/76; TEMP 99
[2022-03-23 12:58] VITALS: BP 142/76; TEMP 98.9
[2022-03-23 16:00] VITALS: BP 158/74; TEMP 99.3
[2022-03-23 20:00] VITALS: BP 172/76; TEMP 99.6
[2022-03-24] VITALS (7 sets, daily range): BP systolic 137–157; BP diastolic 60–72; TEMP 97.9–99.3
[2022-03-24 05:06] LABS: PLATELET COUNT 146 K/uL (152-353)
[2022-03-24 05:20] LABS: POTASSIUM 3.7 mmol/L (3.6-5.2)
[2022-03-25 04:00] VITALS: BP 124/72; BP 138/64; TEMP 98.7
[2022-03-25 04:35] LABS: PLATELET COUNT 142 K/uL (152-353)
[2022-03-25 05:25] LABS: POTASSIUM 3.5 mmol/L (3.6-5.2)
[2022-03-25 08:00] VITALS: BP 154/65; TEMP 98.4
[2022-03-25] MEDS ORDERED: MUPI2OIN2 TOP (11:37)
[2022-03-25 12:00] VITALS: BP 145/67; TEMP 98.3
== END 2022-03-25 12:48 | disposition home or self-care (01) | DRG 439 ==
LOC: ED 12:05 → MED/SURG 15:00
PROVIDERS: Internal Medicine; ADMIT Emergency Medicine Emergency Medical Services; ATTEND Internal Medicine
DX: K85.80 Other acute pancreatitis without necrosis or infection (principal); L03.113 Cellulitis of right upper limb; K86.1 Other chronic pancreatitis; E83.42 Hypomagnesemia; G47.33 Obstructive sleep apnea (adult) (pediatric); E78.49 Other hyperlipidemia; K21.9 Gastro-esophageal reflux disease without esophagitis; I10 Essential (primary) hypertension; J44.9 Chronic obstructive pulmonary disease, unspecified; E87.8 Other disorders of electrolyte and fluid balance, not elsewhere classified; E11.65 Type 2 diabetes mellitus with hyperglycemia; E66.01 Morbid (severe) obesity due to excess calories; Z68.34 Body mass index [BMI] 34.0-34.9, adult
CPT/HCPCS: 36415; 80048; 80053; 81002; 82150; 83690; 83735; 84100; 84484; 85027; 87040; 87077; 87186; 87205; 87635; 93005; 96360; 96361; 96365; 96366; 96367; 96372; 96374; 96375; 99284; J1170; J1650; J2270; J2405; J3475; J3490; U0003

== ENCOUNTER 2022-05-13 07:50 | Outpatient (CLI) | payer OTHER ==
[~2022-05-13 07:50] MED LIST changes: +BENICAR40 MG PO; +MUPI2OIN2 TOP; +PAIN RELIEF EX500 MG PO
== END 2022-05-13 18:49 | disposition home or self-care (01) ==
LOC: RAD 07:50
PROVIDERS: ATTEND Nurse Practitioner Family
DX: R05.1 Acute cough (principal); R06.2 Wheezing

== ENCOUNTER 2022-05-26 17:52 | Observation (INO) | payer OTHER ==
[~2022-05-26] VITALS: Ht 157.5 cm; Wt 90.9 kg
[2022-05-26] VITALS (7 sets, daily range): BP systolic 157–193; BP diastolic 60–84; TEMP 97.1–98.4; Ht 157.5 cm; Wt 90.9 kg
[2022-05-26 18:41] LABS: PLATELET COUNT 192 K/uL (152-353)
[2022-05-26 18:50] LABS: POTASSIUM 4.1 mmol/L (3.6-5.2)
[2022-05-27] VITALS (7 sets, daily range): BP systolic 134–169; BP diastolic 58–74; TEMP 97.4–99.1
[2022-05-27 04:49] LABS: PLATELET COUNT 148 K/uL (152-353)
[2022-05-27 05:36] LABS: POTASSIUM 3.7 mmol/L (3.6-5.2)
[2022-05-27] MEDS ORDERED: AMLODIPINE BESYLATE PO (10:49)
[2022-05-27] MEDS ORDERED: GLIMEPIRIDE PO ×2 (11:15)
[2022-05-27] MEDS ORDERED: VITAMIN D2000 UNI2 PO (11:16)
[2022-05-27] MEDS ORDERED: PROVENTIL108 MCG/AC INH (11:17)
[2022-05-27] MEDS ORDERED: IPRATROPIUM/ INH (11:17)
[2022-05-27] MEDS ORDERED: MAGNESIUM500 M2 PO (11:19)
[2022-05-27] MEDS ORDERED: FLONASE AL50 MCG/ACT NAS (11:19)
[2022-05-28 03:33] VITALS: BP 125/63; TEMP 98.5
[2022-05-28 04:25] LABS: PLATELET COUNT 134 K/uL (152-353)
[2022-05-28 04:55] LABS: POTASSIUM 3.5 mmol/L (3.6-5.2)
[2022-05-28 08:00] VITALS: BP 135/61; TEMP 98.4
[2022-05-28 12:00] VITALS: BP 132/68; TEMP 98
[2022-05-28 16:00] VITALS: BP 134/62; TEMP 98.2
[2022-05-28 20:00] VITALS: BP 149/67; TEMP 97.7
[2022-05-29] VITALS: BP 149/69; TEMP 97.9
[2022-05-29 04:00] VITALS: BP 140/61; BP 142/43; TEMP 98.1; TEMP 98.4
[2022-05-29 06:02] LABS: POTASSIUM 3.6 mmol/L (3.6-5.2)
[2022-05-29 08:00] VITALS: BP 172/71; TEMP 97.7
[2022-05-29 12:00] VITALS: BP 139/62; TEMP 98
== END 2022-05-29 13:12 | disposition home or self-care (01) ==
LOC: ED 17:52 → MED/SURG 22:10
PROVIDERS: ADMIT Emergency Medicine Emergency Medical Services; ATTEND Internal Medicine
DX: K85.80 Other acute pancreatitis without necrosis or infection (principal); G47.33 Obstructive sleep apnea (adult) (pediatric); I10 Essential (primary) hypertension; E83.42 Hypomagnesemia; E87.6 Hypokalemia; K21.9 Gastro-esophageal reflux disease without esophagitis; E78.49 Other hyperlipidemia; Z72.0 Tobacco use; J44.9 Chronic obstructive pulmonary disease, unspecified; E11.65 Type 2 diabetes mellitus with hyperglycemia; E66.01 Morbid (severe) obesity due to excess calories; Z68.35 Body mass index [BMI] 35.0-35.9, adult
CPT/HCPCS: 36415; 80048; 80053; 81002; 82150; 82948; 83605; 83690; 83735; 84484; 85027; 87635; 93005; 94664; 94760; 96360; 96361; 96367; 96372; 96374; 96375; 96376; 99220; 99284; G0378; J1170; J1200; J1650; J2270; J2405; J3475; J3490; U0003

== ENCOUNTER 2022-07-21 09:06 | Day surgery (SDC) | payer OTHER ==
[~2022-07-21] VITALS: Ht 154.9 cm; Wt 79.4 kg
[~2022-07-21 09:06] MED LIST changes: +FLONASE AL50 MCG/ACT NAS; +GLIMEPIRIDE PO; +IPRATROPIUM/ INH; +MAGNESIUM500 M2 PO; +PROVENTIL108 MCG/AC INH; +VITAMIN D2000 UNI2 PO
== END 2022-07-21 12:55 | disposition home or self-care (01) ==
LOC: OR 09:06
PROVIDERS: ATTEND Internal Medicine Gastroenterology
PROC: 0DJD8ZZ Inspection of Lower Intestinal Tract, Via Natural or Artificial Opening Endoscopic (ICD-10-PCS; principal; 2022-07-21)
DX: K64.8 Other hemorrhoids (principal); Z86.010 Personal history of colon polyps; Z12.11 Encounter for screening for malignant neoplasm of colon; D50.8 Other iron deficiency anemias
CPT/HCPCS: J2704; J7120

== ENCOUNTER 2022-08-04 12:44 | Outpatient (CLI) | payer OTHER | END 2022-08-04 23:04 | disposition home or self-care (01) | LOC: US 12:44 | PROVIDERS: ATTEND Nurse Practitioner Family | DX: E78.1 Pure hyperglyceridemia (principal); I10 Essential (primary) hypertension; I25.10 Atherosclerotic heart disease of native coronary artery without angina pectoris ==

== ENCOUNTER 2022-08-30 22:44 | Inpatient (IN) | payer OTHER ==
[~2022-08-30] VITALS: Ht 160 cm; Wt 86.4 kg
[~2022-08-30 22:44] MED LIST changes: +MAGN400T4 PO; -MAGNESIUM500 M2 PO; -VITAMIN D2000 UNI2 PO; +VITAMIN D5000 UNIT PO
[2022-08-30 22:55] VITALS: BP 202/89; TEMP 97.7
[2022-08-30 23:43] LABS: PLATELET COUNT 187 K/uL (152-353)
[2022-08-30 23:52] LABS: POTASSIUM 4.6 mmol/L (3.6-5.2)
[2022-08-31] VITALS (14 sets, daily range): BP systolic 102–183; BP diastolic 50–83; TEMP 97.6–98.3; Ht 160 cm; Wt 86.4 kg
[2022-08-31 05:16] LABS: PLATELET COUNT 161 K/uL (152-353)
[2022-09-01] VITALS (7 sets, daily range): BP systolic 130–182; BP diastolic 53–97; TEMP 98.1–98.7
[2022-09-01 05:32] LABS: PLATELET COUNT 151 K/uL (152-353)
[2022-09-02 03:50] VITALS: BP 180/82; TEMP 98.6
[2022-09-02 08:00] VITALS: BP 155/55; TEMP 98.4
== END 2022-09-02 17:00 | disposition home or self-care (01) | DRG 440 ==
LOC: ED 22:44 → MED/SURG 08-31 02:34
PROVIDERS: Emergency Medicine Emergency Medical Services; Internal Medicine; ADMIT Internal Medicine; ATTEND Internal Medicine
DX: K85.80 Other acute pancreatitis without necrosis or infection (principal); I10 Essential (primary) hypertension; E11.65 Type 2 diabetes mellitus with hyperglycemia; E78.49 Other hyperlipidemia
CPT/HCPCS: 36415; 80053; 80061; 81002; 82150; 82784; 82787; 82948; 83690; 83735; 84100; 84484; 85027; 85610; 93005; 96361; 96365; 96375; 96376; 99284; J1815; J2060; J2270; J2405; J3475; J3480; J3490; J7120

== ENCOUNTER 2022-09-23 13:44 | Outpatient (CLI) | payer OTHER | END 2022-09-23 17:00 | disposition home or self-care (01) | LOC: RAD 13:44 | PROVIDERS: ATTEND Nurse Practitioner Family | DX: M25.572 Pain in left ankle and joints of left foot (principal); M25.473 Effusion, unspecified ankle; M25.562 Pain in left knee ==

== ENCOUNTER 2022-12-22 09:15 | Outpatient (CLI) | payer OTHER | END 2022-12-22 19:05 | disposition home or self-care (01) | LOC: US 09:15 | PROVIDERS: ATTEND Nurse Practitioner Family | DX: M54.41 Lumbago with sciatica, right side (principal) ==

== ENCOUNTER 2023-01-18 13:51 | Inpatient (IN) | payer OTHER ==
[2023-01-18] VITALS (8 sets, daily range): BP systolic 141–171; BP diastolic 60–700; TEMP 97.3–97.8; Ht 160 cm; Wt 79.9 kg
[~2023-01-18] VITALS: Ht 160 cm; Wt 79.9 kg
[2023-01-18 14:30] LABS: PLATELET COUNT 174 K/uL (152-353)
[2023-01-18 14:45] LABS: POTASSIUM 3.8 mmol/L (3.6-5.2); SODIUM 137 mmol/L (136-145)
[2023-01-19] VITALS: BP 152/61; TEMP 98.2
[2023-01-19 03:50] VITALS: BP 185/74; TEMP 98.2
[2023-01-19 05:27] LABS: PLATELET COUNT 141 K/uL (152-353)
[2023-01-19 05:55] LABS: POTASSIUM 3.8 mmol/L (3.6-5.2); SODIUM 136 mmol/L (136-145)
[2023-01-19 08:00] VITALS: BP 169/67; TEMP 98.4
[2023-01-19 12:00] VITALS: BP 173/73; TEMP 98.7
[2023-01-19 16:00] VITALS: BP 172/79; TEMP 98.3
[2023-01-19 20:00] VITALS: BP 190/83; TEMP 98.6
[2023-01-20] VITALS: BP 177/76; TEMP 98.4
[2023-01-20 04:00] VITALS: BP 173/77; TEMP 98.4
[2023-01-20 07:56] VITALS: BP 186/83; TEMP 97.9
== END 2023-01-20 11:14 | disposition home or self-care (01) | DRG 440 ==
LOC: ED 13:51 → MED/SURG 14:58
PROVIDERS: Family Medicine; ADMIT Nurse Practitioner Family; ATTEND Internal Medicine Endocrinology, Diabetes & Metabolism
DX: K85.80 Other acute pancreatitis without necrosis or infection (principal); I10 Essential (primary) hypertension; E11.9 Type 2 diabetes mellitus without complications; E78.49 Other hyperlipidemia; Z72.0 Tobacco use
CPT/HCPCS: 36415; 80048; 80053; 83690; 84484; 85027; 93005; 96374; 96376; 99284; J1650; J2270; J2405; J3490